=== PATIENT | male | born 1995 | race Two or more races ===

== ENCOUNTER 2022-10-15 05:49 | Emergency (ER) | payer MEDICAID ==
[~2022-10-15] VITALS: Ht 160 cm; Wt 65.4 kg
[2022-10-15 06:07] VITALS: BP 127/72
== END 2022-10-15 06:27 | disposition left against medical advice (07) ==
LOC: ER 05:49
DX: R10.13 Epigastric pain (principal); Z53.21 Procedure and treatment not carried out due to patient leaving prior to being seen by health care provider
CPT/HCPCS: 93005